=== PATIENT | female | born 1975 | race Caucasian/White ===

== ENCOUNTER 2020-05-02 04:24 | Emergency (ER) | payer BC ==
[~2020-05-02] VITALS: Ht 170.2 cm; Wt 81.7 kg
--- NOTE | 2020-05-02 04:26 | PHYS DOC ---
Past History Past Medical History: Constipation, IBS (AMY STACK MD) General Adult HPI: HPI: " I ve had diarrhea since Friday. However ate the same food as her body else... I usually have constipation but has had some many stools I cannot count them... Pt. 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/. Reports constant episodes of frequent watery stools since Friday. Patient denies any intake of bad food. Ate the same food as anyone else and no one else is sick. Patient has completed her second Covid vaccination. Patient did have a recent travel to [place] however was not sick on the trip or after coming back. Patient normally healthy. Has had some history of constipation in the past and IBS. No history immunosuppression. Patient has not been on antibiotics recently. Patient reports she is normally healthy. 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 Patient has not taken any Pepto-Bismol or meds at home for this condition. (AMY STACK MD) Review of Systems: Review of Systems: Constitutional: Denies fever or chills Eyes: Denies change in visual acuity HENT: Denies nasal congestion or sore throat Respiratory: Denies cough or shortness of breath Cardiovascular: Denies chest pain or edema GI: Complains of generalized abdominal pain, nausea, and diarrhea : Denies dysuria Musculoskeletal: Denies back pain or joint pain Integument: Denies rash Neurologic: Denies headache, focal weakness or sensory changes Endocrine: Denies polyuria or polydipsia Lymphatic: Denies swollen glands Psychiatric: Denies depression or anxiety (AMY STACK MD) Family History: Family History: Noncontributory to presentation (AMY STACK MD) Current Medications: Current Meds: See nursing for home meds (AMY STACK MD) Allergies: Allergies: Allergic to ibuprofen, morphine and shellfish (AMY STACK MD) Physical Exam: PE: Constitutional: Well developed, well nourished, moderate acute distress, non- toxic appearance. [] HENT: Normocephalic, atraumatic, bilateral external ears normal, oropharynx dry , no oral exudates, nose normal. [] Eyes: PERRLA, EOMI, conjunctiva normal, no discharge. [] Neck: Normal range of motion, no tenderness, supple, no stridor. [] Cardiovascular:Heart rate regular rhythm, no murmur [] Lungs & Thorax: Bilateral breath sounds clear to auscultation [] Abdomen: Bowel sounds hyperactive, soft, mild generalized tenderness, no masses, no pulsatile masses. [] Skin: Warm, dry, no erythema, no rash. [] Back: No tenderness, no CVA tenderness. [] Extremities: No tenderness, no cyanosis, no clubbing, ROM intact, no edema. No psoas sign. Neurologic: Alert and oriented X 3, normal motor function, normal sensory function, no focal deficits noted. [] Psychologic: Affect anxious, judgement normal, mood normal. [] (AMY STACK MD) Current Patient Data: Labs: Laboratory Tests Test 05/02/20 04:30 05/02/20 04:50 05/02/20 05:12 Urine Collection Type Unknown Urine Color Yellow Urine Clarity Clear Urine pH 5.5 Urine Specific Enterprise >=1.030 Urine Protein 30 mg/dl Urine Glucose (UA) Neg mg/dL Urine Ketones (Stick) 15 mg/dL Urine Blood Small Urine Nitrite Neg Urine Bilirubin Neg Urine Urobilinogen Dipstick 0.2 mg/dL Urine Leukocyte Esterase Neg Urine RBC Occ /HPF Urine WBC Occ /HPF Urine Squamous Epithelial Cells Occ /LPF Urine Bacteria 0 /HPF Urine Opiates Screen Neg Urine Methadone Screen Neg Urine Barbiturates Neg Urine Phencyclidine Screen Neg Urine Amphetamine/Methamphetamine Neg Urine Benzodiazepines Screen Neg Urine Cocaine Screen Neg Urine Cannabinoids Screen Neg Urine Ethyl Alcohol Neg White Blood Count 7.0 x10^3/uL Red Blood Count 4.04 x10^6/uL Hemoglobin 12.1 g/dL Hematocrit 37.0 % Mean Corpuscular Volume 92 fL Mean Corpuscular Hemoglobin 30 pg Mean Corpuscular Hemoglobin Concent 33 g/dL Red Cell Distribution Width 13.0 % Platelet Count 275 x10^3/uL Neutrophils (%) (Auto) 87 % Lymphocytes (%) (Auto) 6 % Monocytes (%) (Auto) 5 % Eosinophils (%) (Auto) 2 % Basophils (%) (Auto) 1 % Neutrophils # (Auto) 6.1 x10^3uL Lymphocytes # (Auto) 0.4 x10^3/uL Monocytes # (Auto) 0.3 x10^3/uL Eosinophils # (Auto) 0.1 x10^3/uL Basophils # (Auto) 0.0 x10^3/uL Sodium Level 137 mmol/L Potassium Level 3.1 mmol/L Chloride Level 102 mmol/L Carbon Dioxide Level 25 mmol/L Anion Gap 10 Blood Urea Nitrogen 16 mg/dL Creatinine 0.9 mg/dL Estimated GFR (Cockcroft-Gault) 68.3 Glucose Level 90 mg/dL Calcium Level 8.3 mg/dL Magnesium Level 1.8 mg/dL Total Bilirubin 0.6 mg/dL Direct Bilirubin 0.2 mg/dL Aspartate Amino Transf (AST/SGOT) 18 U/L Alanine Aminotransferase (ALT/SGPT) 20 U/L Alkaline Phosphatase 60 U/L Creatine Kinase 59 U/L Troponin I Quantitative < 0.017 ng/mL Total Protein 7.5 g/dL Albumin 3.6 g/dL Amylase Level 62 U/L Lipase 137 U/L Bedside Urine HCG, Qualitative hcg negative Current Medications Medications (Trade) Dose Ordered Sig/Avtar Route PRN Reason Start Time Stop Time Status Last Admin Dose Admin Lactated Ringer's 1,000 ml @ 100 mls/hr Q10H IV 05/02/20 05:00 05/02/20 14:59 05/02/20 04:55 Nitroglycerin (Nitro-Bid Oint) 1 inch 1X ONCE TP 05/02/20 05:00 05/02/20 05:05 DC Enoxaparin Sodium (Lovenox 80mg Syringe) 80 mg 1X ONCE SQ 05/02/20 05:00 05/02/20 05:05 DC Lactated Ringer's 1,000 ml @ 1,000 mls/hr 1X ONCE IV 05/02/20 05:00 05/02/20 06:00 DC 05/02/20 04:55 Potassium Chloride (Klor-Con) 40 meq 1X ONCE PO 05/02/20 06:45 05/02/20 07:05 DC 05/02/20 07:37 Diphenoxylate HCl/ Atropine (Lomotil) 1 tab 1X ONCE PO 05/02/20 07:15 05/02/20 07:16 DC 05/02/20 07:37 Trimethoprim/ Sulfamethoxazole (Bactrim Ds) 1 tab 1X ONCE PO 05/02/20 07:15 05/02/20 07:16 DC 05/02/20 07:37 Sodium Chloride 1,000 ml @ 1,000 mls/hr 1X ONCE IV 05/02/20 08:15 05/02/20 09:14 (JOHN GARCIA DO) EKG: EKG: [] (AMY STACK MD) Radiology/Procedures: Radiology/Procedures: [] (AMY STACK MD) Radiology/Procedures: [place] [address] IMAGING REPORT Signed PATIENT: NAVIN SOTELO ACCOUNT: [id number] : 1975 LOCATION: ER AGE: 44 SEX: F EXAM STATUS: PRE ER ORD. PHYSICIAN: AMY STACK MD REASON: cp PROCEDURE: PORTABLE CHEST 1V XR CHEST 1V 05/02/2020 5:02 AM INDICATION: Chest pain COMPARISON: None available TECHNIQUE: Portable frontal view of the chest is provided. FINDINGS: The cardiomediastinal silhouette is within normal limits. Lungs are clear. There are no significant pleural effusions. There is no pulmonary vascular congestion. No pneumothorax. No suspicious osseous abnormality. IMPRESSION: There is no acute cardiopulmonary process. Electronically signed by: Earline Lang MD (05/02/2020 5:33 AM) [facility] DICTATED AND SIGNED BY: EARLINE LANG MD DATE: 05/02/20 05 CC: AMY STACK MD; PCP,UNKNOWN ~MTH0 0 (JOHN GARCIA DO) Heart Score: Risk Factors: Risk Factors: DM, Current or recent (<one month) smoker, HTN, HLP, family history of CAD, obesity. Risk Scores: Score 0 - 3: 2.5% MACE over next 6 weeks - Discharge Home Score 4 - 6: 20.3% MACE over next 6 weeks - Admit for Clinical Observation Score 7 - 10: 72.7% MACE over next 6 weeks - Early Invasive Strategies (AMY STACK MD) Course & Med Decision Making: Course & Med Decision Making Pertinent Labs and Imaging studies reviewed. (See chart for details) Still awaiting electrolytes at shift change. Endorsed to Dr. Garcia at shift change. He will make disposition Impression: 1. Diarrhea. [] (AMY STACK MD) Course & Med Decision Making Patient is a 43-year-old female who presented to ER due to nausea vomiting, diarrhea and abdominal cramping for the last 3 days. Patient was given IV fluid, IV nausea medication, antidiarrhea medication in the ER, she feels much better, patient will be discharged home with Zofran, Lomotil, Bactrim DS. Abdominal examination is nontender to palpation, no rebound, no guarding. (JOHN GARCIA DO) Dragon Disclaimer: Dragon Disclaimer: This electronic medical record was generated, in whole or in part, using a voice recognition dictation system. (AMY STACK MD) Departure Departure: Impression: Primary Impression: Gastroenteritis Disposition: 01 DC HOME SELF CARE/HOMELESS Condition: IMPROVED Referrals: PCP,UNKNOWN (PCP) Follow-up with your doctor as needed. Patient Instructions: Viral Gastroenteritis Additional Instructions: Thank you for visiting our Emergency Department. We appreciate you trusting us with your care. If any additional problems come up don't hesitate to return to visit us. Please follow up with your primary care provider so they can plan additional care if needed and know about the problem that you had. If symptoms worsen come back to the Emergency Department. Any concerning symptoms that start such as chest pain, shortness of air, weakness or numbness on one side of the body, running high fevers or any other concerning symptoms return to the ER. Scripts Ondansetron Hcl (ZOFRAN) 4 Mg Tablet 1 TAB PO Q6HRS PRN for NAUSEA, #20 TAB Prov: JOHN GARCIA DO 05/02/20 Sulfamethoxazole/Trimethoprim (BACTRIM DS TABLET) 1 Each Tablet 1 TAB PO BID for diarrhea for 3 Days, #6 TAB 0 Refills Prov: JOHN GARCIA DO 05/02/20 Diphenoxylate Hcl/Atropine (LOMOTIL TABLET) 1 Each Tablet 2 TAB PO TID PRN for DIARRHEA for 3 Days, #18 TAB Prov: JOHN GARCIA DO 05/02/20 AMY STACK MD May 02, 2020 04:26 JOHN GARCIA DO May 02, 2020 08:33
[2020-05-02] MEDS: IV RINGERS SOLUTION,LACTATED 1,000 ML IV SCH ×2 (04:55→06:22)
[2020-05-02] MEDS ORDERED: IV RINGERS SOLUTION,LACTATED 1,000 ML IV ONE (05:00)
[2020-05-02] MEDS ORDERED: ENOXAPARIN ** NOTE DOSE ** SYRINGE SQ ONE (05:00)
[2020-05-02] MEDS ORDERED: NITROGLYCERIN OINT 1 GM PACKET. TP ONE (05:00)
--- NOTE | 2020-05-02 05:00 | EKG ---
[facility] ED [facility] [address] [place] [id number] Test Date: 2020-05-02 Test Time: 04:55:56 Pat Name: NAVIN SOTELO Department: Room: Gender: F [employer] Machine Operator: : 1975 Requested By: AMY STACK Order Number: [id number] Reading MD: Oliver Denney Measurements Intervals Sherman Rate: 85 P: 90 RI: 176 QRS: 66 QRSD: 76 T: 64 QT: 442 QTc: 526 Interpretive Statements SINUS RHYTHM LEFT ATRIAL ABNORMALITY PROLONGED QT ABNORMAL ECG RI6.02 No previous ECG available for comparison Electronically Signed On 05-02-2020 14:39:30 [employer]ING [employer] by Oliver Denney
[2020-05-02 05:22] LABS: BASO % 1 % (0-3); EOS # 0.1 x10^3/uL (0.0-0.7); EOS % 2 % (0-3); HEMOGLOBIN 12.1 g/dL (12.0-15.5); LYMPH # 0.4 x10^3/uL (1.0-4.8); LYMPH % 6 % (24-48); MEAN CORPUSCULAR HEMOGLOBIN 30 pg (25-35); MEAN CORPUSCULAR HGB CONC 33 g/dL (31-37); MEAN CORPUSCULAR VOLUME 92 fL (79-100); MONO # 0.3 x10^3/uL (0.0-1.1); MONO % 5 % (0-9); NEUT # 6.1 x10^3uL (1.8-7.7); NEUT % 87 % (31-73); PLATELET COUNT 275 x10^3/uL (140-400); RED BLOOD COUNT 4.04 x10^6/uL (3.50-5.40)
--- NOTE | 2020-05-02 05:36 | RAD ---
XR CHEST 1V 05/02/2020 5:02 AM INDICATION: Chest pain COMPARISON: None available TECHNIQUE: Portable frontal view of the chest is provided. FINDINGS: The cardiomediastinal silhouette is within normal limits. Lungs are clear. There are no significant pleural effusions. There is no pulmonary vascular congestion. No pneumothora x. No suspicious osseous abnormality. IMPRESSION: There is no acute cardiopulmonary process. Electronically signed by: Nichole Brandon MD (05/02/2020 5:33 AM) [facility]
[2020-05-02 05:38] LABS: CLARITY,URINE CLEAR; COLOR,URINE YELLOW; GLUCOSE,URINE NEG (NEG)
[2020-05-02 05:39] LABS: BACTERIA,URINE 0 /HPF (0-FEW); BILIRUBIN,URINE NEG (NEG); NITRITE,URINE NEG (NEG); RBC,URINE OCC /HPF (0-2); SQUAMOUS EPITHELIAL CELL,UR OCC /LPF; UROBILINOGEN,URINE 0.2 mg/dL (0.2 mg/dL); WBC,URINE OCC /HPF (0-4)
[2020-05-02 06:10] LABS: BARBITURATES NEG (NEG); BENZODIAZEPINES NEG (NEG); CANNABINOIDS NEG (NEG); COCAINE NEG (NEG); METHADONE NEG (NEG); OPIATES NEG (NEG); PHENCYCLIDINE NEG (NEG)
[2020-05-02 06:12] LABS: CALCIUM 8.3 mg/dL (8.5-10.1); CREATININE 0.9 mg/dL (0.6-1.0); GFR 68.3; POTASSIUM 3.1 mmol/L (3.5-5.1)
[2020-05-02 06:17] LABS: ALBUMIN 3.6 g/dL (3.4-5.0); DIRECT BILIRUBIN 0.2 mg/dL (0.0-0.2); MAGNESIUM 1.8 mg/dL (1.8-2.4); TOTAL BILIRUBIN 0.6 mg/dL (0.2-1.0); TOTAL PROTEIN 7.5 g/dL (6.4-8.2)
[2020-05-02 06:43] LABS: AMPHETAMINE/METHAMPHETAMINE NEG (NEG)
[2020-05-02] MEDS ORDERED: POTASSIUM CHLORIDE 10 MEQ TABLET.ER. PO ONE (06:45)
[2020-05-02] MEDS ORDERED: SMZ/TMP 800/160MG TABLET. PO ONE (07:15)
[2020-05-02] MEDS ORDERED: DIPHENOXYLATE/ATROPINE TABLET. PO ONE (07:15)
[2020-05-02] MEDS ORDERED: IV NORMAL SALINE 1,000ML 1,000 ML IV ONE (08:15)
[2020-05-02] MEDS ORDERED: SULF1TAB24 PO (08:46)
[2020-05-02] MEDS ORDERED: ONDA4TAB7 PO (08:46)
[2020-05-02] MEDS ORDERED: DIPH1TAB PO (08:46)
[2020-05-02 08:57] VITALS: BP 111/67
== END 2020-05-02 09:14 | disposition home or self-care (01) ==
LOC: ER 04:24
DX: K52.9 Noninfective gastroenteritis and colitis, unspecified (principal); R10.84 Generalized abdominal pain; Z88.6 Allergy status to analgesic agent; Z88.5 Allergy status to narcotic agent; Z91.013 Allergy to seafood
CPT/HCPCS: 36415; 71045; 80048; 80076; 80307; 81001; 81025; 82150; 82550; 83690; 83735; 84443; 84484; 85025; 87493; 93005; 96360; 96361; 99285; J7030; J7120